=== PATIENT | male | born 1955 ===

== ENCOUNTER → 2017-02-14 | Outpatient (CLI) | payer OTHER ==
[~2017-02-14] MED LIST: DEPO METHYLPREDNISOLONE 40 MG/ML SDV ONE; IOPAMIDOL (ISOVUE 370) 100 ML BTL IV ONE; LIDOCAINE 1% 300 MG/30 ML SDV ONE; ROPIVACAINE HCL 150 MG/30 ML INJ ONE
== END ==
LOC: FIMAGING 12:36
PROVIDERS: ATTEND Physician Assistant
DX: M16.12 Unilateral primary osteoarthritis, left hip (principal)
CPT/HCPCS: J1030; J2795; Q9967

== ENCOUNTER 2017-08-08 07:48 | Inpatient (IN) | payer OTHER ==
[~2017-08-08 07:48] MED LIST changes: -DEPO METHYLPREDNISOLONE 40 MG/ML SDV ONE; -IOPAMIDOL (ISOVUE 370) 100 ML BTL IV ONE; -LIDOCAINE 1% 300 MG/30 ML SDV ONE; +POVIDONE-IODINE 20 ML in SODIUM CL IRRIG SOLUTION 500 ML IRR ONE; +ROPIVACAINE 0.2% 80 MG, EPINEPHrine 0.2 MG, KETOROLAC TROMETHAMINE 30 MG in BAG 0 ML IU ONE; -ROPIVACAINE HCL 150 MG/30 ML INJ ONE; +TRANEXAMIC ACID 1,500 MG in NS 100 ML IV ONE
[2017-08-08] MEDS ORDERED: ceFAZolin 1 GM/5 ML SYR ONE (07:51)
[2017-08-08] MEDS ORDERED: DEXAMETHASONE 4 MG/ML VIAL IVP ONE (08:03)
[2017-08-08] MEDS ORDERED: ACETAMINOPHEN 325 MG TAB PO ONE (08:03)
[2017-08-08] MEDS ORDERED: ceFAZolin 2 GM/SWFI 2 GM/20 ML SYR IVP ONE (08:03)
[2017-08-08] MEDS ORDERED: FAMOTIDINE 20 MG TAB PO ONE (08:03)
[2017-08-08] MEDS ORDERED: LIDOCAINE 1% 2 ML INJ ID PRN (08:05)
[2017-08-08] MEDS ORDERED: LR 1,000 ML IV ONE (08:05)
[2017-08-08] MEDS ORDERED: MIDAZOLAM 2 MG/2 ML VIAL IVP ONE (08:53)
--- NOTE | 2017-08-08 08:53 | PDANEPAE ---
ANE History of Present Illness L hip resurfacing ANE Past Medical History - Cardiovascular History Hx Hypertension: No Hx Arrhythmias: No Hx Chest Pain: No Hx Coronary Artery / Peripheral Vascular Disease: No Hx CHF / Valvular Disease: No Hx Palpitations: No - Pulmonary History Hx COPD: No Hx Asthma/Reactive Airway Disease: No Hx Recent Upper Respiratory Infection: No Hx Oxygen in Use at Home: No Hx Sleep Apnea: No Sleep Apnea Screening Result - Last Documented: Negative - Neurologic History Hx Cerebrovascular Accident: No Hx Seizures: No Hx Dementia: No - Endocrine History Hx Diabetes: No - Renal History Hx Renal Disorders: No - Liver History Hx Hepatic Disorders: No - Neurological & Psychiatric Hx Hx Neurological and Psychiatric Disorders: No - Cancer History Hx Cancer: No - Congenital Disorder History Hx Congenital Disorders: No - GI History Hx Gastrointestinal Disorders: No - Other Health History Other Health History: none - Chronic Pain History Chronic Pain: Yes (lower back) - Surgical History Prior Surgeries: 03/28 right hip. right femur 06/28 ANE Review of Systems Review of systems is: negative Review of Systems: - Exercise capacity Exercise capacity: >=4 METS METS (RN): 6 METS ANE Patient History - Allergies Allergies/Adverse Reactions: No Known Allergies Allergy (Verified 07/09/17 14:03) - Home Medications Home medications: home medication list seen and reviewed Home Medications: Ibuprofen [Motrin (*)] 400 - 600 mg PO DAILY PRN 07/02/17 [Last Taken 07/31/17] - NPO status NPO Status: no food or drink >8 hours NPO Since - Liquids (Date): 08/08/17 NPO Since - Liquids (Time): 08:00 NPO Since - Solids (Date): 08/07/17 NPO Since - Solids (Time): 20:00 - Anes Hx Anes Hx: no prior problems - Smoking Hx Smoking Status: Never smoked - Family Anes Hx Family Anes Hx: none Family Hx Anesthesia Complications: none ANE Labs/Vital Signs - Vital Signs Blood Pressure: 120/85 Heart Rate: 54 Respiratory Rate: 16 O2 Sat (%): 97 Height: 187.96 cm Weight: 81.647 kg ANE Physical Exam - Airway Neck exam: FROM Mallampati Score: Class 1 Mouth exam: normal dental/mouth exam - Pulmonary Pulmonary: no respiratory distress - Cardiovascular Cardiovascular: regular rate and rhythym - ASA Status ASA Status: I ANE Anesthesia Plan Anesthesia Plan: MAC, spinal
--- NOTE | 2017-08-08 09:03 | PDHPUP ---
History & Physical Update H&P update statement: This history and physical update is based on an assessment of the patient which was completed after admission or registration (within 24 hours), but prior to the surgery/procedure. H&P update: H&P reviewed & patient examined, no change in patient's condition since H&P completed
[2017-08-08] MEDS ORDERED: LIDOCAINE 2% 100 MG/5 ML SYR ONE (09:59)
[2017-08-08] MEDS ORDERED: PROPOFOL/EMULSION 500 MG/50 ML BOTTLE IV ONE ×2 (09:59→11:00)
[2017-08-08] MEDS ORDERED: HYDROmorphONE/DILAUDID 1 MG/ML INJ IVP PRN (10:51)
[2017-08-08] MEDS ORDERED: DEXAMETHASONE 4 MG/ML VIAL IVP PRN (10:51)
[2017-08-08] MEDS ORDERED: ACETAMINOPHEN 500 MG TAB PO PRN (10:51)
[2017-08-08] MEDS ORDERED: MEPERIDINE 25 MG/ML SYR IVP PRN (10:51)
[2017-08-08] MEDS ORDERED: HYDROCODONE/APAP 5/325 TAB PO PRN (10:51)
[2017-08-08] MEDS ORDERED: fentaNYL 100 MCG/2 ML INJ IVP PRN (10:51)
[2017-08-08] MEDS ORDERED: NALOXONE HCL 0.4 MG/ML INJ IVP PRN (10:51)
[2017-08-08] MEDS ORDERED: ONDANSETRON 4 MG/2 ML VIAL IVP PRN ×2 (10:51→11:52)
[2017-08-08] MEDS ORDERED: PROMETHAZINE HCL 25 MG/ML INJ IVP PRN ×2 (10:51→11:52)
[2017-08-08] MEDS ORDERED: OXYCODONE/APAP 5/325 TAB PO PRN (10:51)
--- NOTE | 2017-08-08 10:54 | POSTANESTH ---
Post Anesthetic Evaluation Cardiovascular Status: Normal, Stable, Similar to Pre-Op Cond Respiratory Status: Normal, Stable, Similar to Pre-op Cond. Level of Consciousness/Mental Status: Can Participate in Eval, Mildly Sleepy, Arousable Pain Control: Adequate, Prn Tx Ordered Nausea/Vomiting Control: Adequate, Prn Tx Ordered Complications Possibly Related to Anesthesia: None Noted
--- NOTE | 2017-08-08 11:41 | POSTOPPROG ---
Post Op Note Date of Operation: 08/08/17 Surgeon: Gabriel Galeano Teradata Architect: Sav Robison/Leobardo Sierra Anesthesiologist: Dr. Amaury Zhou Anesthesia: IV Sedation, Spinal Post-op Diagnosis: Left hip severe degenerative arthritis Procedure: Left hip [place] hip resurfacing arthroplasty Inf/Abcess present in the surg proc area at time of surgery?: No EBL: 100-500
[2017-08-08] MEDS ORDERED: ONDANSETRON DISINTEGRATING 4 MG TAB PO PRN (11:52)
[2017-08-08] MEDS ORDERED: traMADol 50 MG TAB PO PRN (11:52)
[2017-08-08] MEDS ORDERED: diphenhydrAMINE 25 MG CAP PO PRN (11:52)
[2017-08-08] MEDS ORDERED: POLYETHYLENE GLYCOL 3350 17 GM PKT PO PRN (11:52)
[2017-08-08] MEDS ORDERED: METOCLOPRAMIDE 10 MG/2 ML VIAL IVP PRN (11:52)
[2017-08-08] MEDS ORDERED: PROMETHAZINE HCL 25 MG SUPPR PR PRN (11:52)
[2017-08-08] MEDS ORDERED: DIPHENOXYLATE/ATROPINE LOMOTIL 1 TAB PO PRN (11:52)
[2017-08-08] MEDS ORDERED: CYCLOBENZAPRINE 10 MG TAB PO PRN (11:52)
[2017-08-08] MEDS ORDERED: LACTULOSE 20 GM/30 ML UDCUP PO PRN (11:52)
[2017-08-08] MEDS ORDERED: TEMAZEPAM 15 MG CAP PO PRN (11:52)
[2017-08-08] MEDS ORDERED: KETOROLAC 30 MG/1 ML SDV IVP PRN (11:52)
[2017-08-08] MEDS ORDERED: NS 500 ML IV PRN (11:52)
[2017-08-08] MEDS ORDERED: MAGNESIUM HYDROXIDE 30 ML UDCUP PO PRN (11:52)
[2017-08-08] MEDS ORDERED: BISACODYL 10 MG SUPP PR PRN (11:52)
[2017-08-08] MEDS ORDERED: ONDANSETRON 4 MG/2 ML VIAL ONE (11:59)
[2017-08-08] MEDS ORDERED: LR 1,000 ML IV SCH (12:00)
--- NOTE | 2017-08-08 12:40 | GOP ---
[f rep st] OPERATIVE REPORT DATE OF OPERATION: 08/08/2017 SURGEON: Gabriel Galeano MD INFORMATION TECHNOLOGY ADMINISTRATOR: Sav Robison and Leobardo Sierra. ANESTHESIA: Combination of Marcaine, spinal, and IV sedation. ANESTHESIOLOGIST: Dr. Rigo Zhou. PREOPERATIVE DIAGNOSIS: Left hip severe degenerative arthritis. POSTOPERATIVE DIAGNOSIS: Left hip severe degenerative arthritis. PROCEDURE PERFORMED: August 08, 2017, left hip [place] hip resurfacing arthroplasty. FINDINGS: DESCRIPTION OF PROCEDURE: The patient was given 2 g of preoperative IV Ancef within 60 minutes of savage rgery. He also received IV tranexamic acid at a dose of 20 mg/kg. He was placed on the operating ro om table and given spinal anesthesia with Marcaine by Dr. Zhou. He was then placed supine and gi she IV sedation. A Stone catheter was not used. He wore a MACKENZIE stocking and SCD on the nonoperative leg. He was rolled to the right lateral decubitus position. An axillary roll was used, and all pres sure points were carefully padded. The position was secured with the pegboard table attachment. I w as careful to lock his pelvis in a rigid vertical position. His perineum was isolated with plastic a dhesive drapes. The left hip and left lower extremity were prepped with ChloraPrep. They were drape d free using sterile sheets, stockinette, and Ioban plastic drape. The [employer] time-out was performed to verify the correct patient identity and the c orrect surgical side and site. The [place] time-out was also performed. I made a 7-inch straight oblique posterolateral hip skin incision. The subcutaneous tissues were sha rply divided, and hemostasis was obtained using electrocautery. The fascia gurdeep was identified and s plit along the axis of its fibers. I curved posteriorly and proximally, and split the fascia of glut eus cheng and bluntly split the muscle fibers in line with their orientation. His sciatic nerve wa s identified and protected throughout the procedure. The Charnley self-retaining retractor was inser mackenzie. The external rotators and the posterior capsule were divided as separate layers at the base of the femoral neck, tagged, and reflected posteriorly. The gluteus cheng tendon was divided and tagg ed in order to improve exposure and release tension on the sciatic nerve. The hip was dislocated pos teriorly. I used a sizing gauge to check the diameter of the neck and concluded that a 52 mm was the proper head size. I performed a complete circumferential capsulotomy. I was able to retract the fe moral head anteriorly and superiorly, and hold it out of place with appropriate retractors. The remn ant of his damaged labrum was excised. His acetabulum was reamed sequentially up to 57 mm. I select ed the [place] monoblock porous-coated acetabular component with an outside diameter of 58 mm. Th is was firmly impacted and was a good tight fit. I was careful to determine proper inclination and a nteversion. I used the transverse acetabular ligament and other acetabular bony landmarks to help me properly orient the cup. I was careful to leave a good lip of bone and capsule extending beyond the anterior-inferior lip of the metal cup. I then returned to preparation of the femoral head. Using appropriate jigs and guides, I inserted a guide pin into the femoral head and neck. I was careful to position in such a way that there would b e no notching of the neck. The large sterile metal goniometer was used to check the neck shaft angle . I reamed over the guide pin and inserted the reaming guide. I then used the cylindrical reamer do wn to the head and neck junction. This was followed by the flat reamer and the chamfer reamer. The head was sized for 52 mm. There was no impingement or damage to the neck. I drilled a small hole in the lesser trochanter and inserted a suction cannula to create a negative pressure in the medullary canal. Small holes were drilled on the flattened chamfer surfaces of the prepared head for cement an chors. The head was thoroughly cleaned with the pulsating lavage irrigation and carefully dried. I used a CarboJet device to blow dry the cancellous surfaces. A single batch of Simplex cement with to bramycin was mixed. At about 50 seconds, I poured the liquid cement into the head component, inserte d it onto the prepared head and impacted it into place. Excess cement was removed before it hardened . His acetabulum was irrigated, cleaned, and inspected, and reduced 1 final time. Stability and ran ge of motion were checked. I placed my finger along the anterior aspect of the acetabular component and flexed the hip to 110 degrees. There was no anterior impingement. The suction cannula on the le sser trochanter was removed. The wound was thoroughly irrigated 1 final time with a dilute Betadine solution. 40 mL of the joint anesthetic cocktail were injected into the capsule, the deep musculatur e, and subcutaneous tissues along the skin edges. The sciatic nerve was reinspected and looked unharmed. The external rotators and the posterior hip c apsule were repaired in separate layers with #2 FiberWire sutures through drill holes in the greater trochanter. The gluteus cheng tendon was repaired with #2 [id number] FiberWire sutures. The fascia gurdeep was closed first with a couple of interrupted [id number] #2 FiberWire sutures follow ed by a running #2 barbed Ethicon Stratafix PDO suture. Subcutaneous tissues were closed with a runn ing 0 barbed Ethicon Stratafix Monoderm suture. The skin was closed with a running 3-0 barbed Ethico n Stratafix Monoderm subcuticular suture. The skin edges were reapproximated and sealed with Dermabo nd glue. The wound was covered with a large sterile Mepilex waterproof dressing. Estimated blood loss was about 500 mL. He bled more than usual and seemed to bleed quite a bit from all of the cut bony surfaces. I used the [place] hip resurfacing system. The acetabular component was 58 mm in diameter and pre ss-fit. The femoral head was 52 mm and cemented. He was awakened from anesthesia and rolled to the supine position on his [facility]. A long-leg MACKENZIE stocking and SCD were applied to the operativ e leg. An abduction pillow was placed between his knees. He was awakened from anesthesia, transferr ed to his hospital [facility] and taken to PACU in satisfactory condition. There were no recognized intr aoperative complications. The sponge and needle count were correct on 2 occasions. Sav Robison and Leobardo Sierra acted as surgical assistants. Their assistance was a medical necess ity. Copy requested to: [facility] /[id number]/MODL
[2017-08-08] MEDS: ACETAMINOPHEN 325 MG TAB PO SCH ×3 (13:27→21:51)
[2017-08-08] MEDS ORDERED: ceFAZolin 2 GM/DEXTROSE 100 ML IV SCH (14:00)
[2017-08-08] MEDS: oxyCODONE IR 5 MG TAB PO PRN ×2 (15:02→23:22)
[2017-08-08] MEDS: ceFAZolin 2 GM/SWFI 2 GM/20 ML SYR IVP SCH (18:16)
[2017-08-08] MEDS: TRANEXAMIC ACID 650 MG TAB PO SCH (18:16)
[2017-08-08] MEDS: SENNOSIDES/DOCUSATE SODIUM TAB PO SCH (21:51)
[2017-08-08] MEDS: ASPIRIN EC 325 MG TAB PO SCH (21:51)
[2017-08-08] MEDS: FAMOTIDINE 20 MG TAB PO SCH (21:51)
[2017-08-09] MEDS: TRANEXAMIC ACID 650 MG TAB PO SCH ×2 (03:00→10:11)
[2017-08-09] MEDS: ceFAZolin 2 GM/SWFI 2 GM/20 ML SYR IVP SCH (03:00)
[2017-08-09 04:34] VITALS: RESP 16
[2017-08-09] MEDS: ACETAMINOPHEN 325 MG TAB PO SCH (06:17)
[2017-08-09 06:45] LABS: HEMATOCRIT 33.3 % (40.0-51.0); HEMOGLOBIN 12.1 g/dL (13.7-17.5)
--- NOTE | 2017-08-09 07:42 | SOAPPROG ---
SOAP Progress Note Assessment/Plan: Assessment: Afebrile. Minimal pain. He has been walking in the [place]. His dressing is dry. Sciatic nerve intact. Postop films look excellent. Postop H&H are satisfactory. Plan: Up with physical therapy today. Discharged later today. 08/09/17 07:41 Objective: Vital Signs Temp Pulse Resp BP Pulse Ox 36.8 C 57 L 16 99/69 L 96 08/09/17 04:00 08/09/17 04:00 08/09/17 04:00 08/09/17 04:00 08/09/17 04:00 Laboratory Results 08/09/17 05:55 08/08/17 08/09/17 08/10/17 05:59 05:59 05:59 Intake Total 2100 Output Total 3050 Balance -950 ICD10 Worksheet Patient Problems: Problems Problem Status Onset Osteoarthritis of left knee Acute
--- NOTE | 2017-08-09 08:09 | GDS ---
[f rep st] DISCHARGE SUMMARY ADMISSION DIAGNOSIS: Left hip severe degenerative arthritis. DISCHARGE DIAGNOSIS: Left hip severe degenerative arthritis. OPERATION PERFORMED: 08/08/2017, a left hip [place] hip resurfacing arthroplasty. POSTOPERATIVE COMPLICATIONS: None. CONDITION ON DISCHARGE: Improved. DESCRIPTION OF HOSPITAL COURSE: The patient was admitted to the hospital on the morning of surgery. His admission CBC was normal. The same day, under a combination of Marcaine, spinal, and IV sedatio n, he underwent a left hip Carmina hip resurfacing arthroplasty. Postoperatively, he was treated with multimodal DVT prophylaxis, including aspirin. He was seen by physical therapy and made ac[facility] hospitale nt progress with ambulation. On the first postoperative day his hemoglobin and hematocrit were 12.1 and 33.3. By the time of discharge, he was afebrile, and he was independent walking. DISPOSITION: The patient discharged to his home. He will go to outpatient physical therapy in [facility]. Continue aspirin 325 mg p.o. daily for 21 days. He has prescriptions for oxycodone and tramadol for pain control. Use an abduction pillow in bed for 3 weeks and MACKENZIE stockings for 1 week. I will s ee him back in the office on August 30, 2017. If there are any problems, he is to call me at the of [facility]. /[id number]/MODL
[2017-08-09 08:21] VITALS: BP 122/69; PULSE 62; TEMP 97.7; O2SAT 95
[2017-08-09] MEDS: ASPIRIN EC 325 MG TAB PO SCH (08:49)
[2017-08-09] MEDS: FAMOTIDINE 20 MG TAB PO SCH (08:50)
[2017-08-09] MEDS: SENNOSIDES/DOCUSATE SODIUM TAB PO SCH (08:50)
[2017-08-09] MEDS: oxyCODONE IR 5 MG TAB PO PRN (08:52)
[2017-08-09] MEDS ORDERED: FERROUS SULFATE 140 MG TAB.ER PO SCH (09:00)
--- NOTE | 2017-08-09 12:18 | ASDISCHSUM ---
Discharge Information Plan Status:Home with No Needs Medically Cleared to Leave: Discharge Date:08/09/2017 11:50 AM CM D/C Disposition:Home, Routine, Self-Care ADT D/C Disposition:Home, Routine, Self-Care Projected Discharge Date:08/09/2017 11:50 AM Transportation at D/C: Discharge Delay Reason: Follow-Up Date:08/09/2017 11:50 AM Discharge Slot: Final Diagnosis: Placement Information Patient Contact Information Contact Name:SHONDA Relationship: Address:[address] [place] [address] City:[facility] Phone: [facility]/Zip Code:[place] [address] Email: Financial Information Financial Class:HMO and PPO Plans Primary Plan Desc:[facility] PPO POS Primary Plan Number:[id number] Secondary Plan Desc: Secondary Plan Number: Assessment Information [facility] CM Progress Note CM Note CM Note Notes: Pt medically stable for d/c, no CM d/c needs identified. Date Signed: 08/09/2017 12:17 PM Electronically Signed By:KATHY Lopez Intervention Information
== END 2017-08-09 11:50 | disposition home or self-care (01) | DRG 470 ==
LOC: F3N 07:48
PROVIDERS: ADMIT Orthopaedic Surgery; ATTEND Orthopaedic Surgery
PROC: 0SUB0BZ Supplement Left Hip Joint with Resurfacing Device, Open Approach (ICD-10-PCS; principal; 2017-08-08 09:30)
DX: M16.12 Unilateral primary osteoarthritis, left hip (principal)
CPT/HCPCS: 97110-GP; 97116-GP; 97161-GP; 97165-GO; 97535-GO; C1713; J0171; J0690; J1100; J1885; J2001; J2250; J2405; J2704; J2795